=== PATIENT | female | born 1950 | race Caucasian/White ===

== ENCOUNTER → 2017-12-16 | Outpatient (REF) | payer MEDICARE, OTHER | LOC: M SFHCWAGY 11:16 | DX: Z12.4 Encounter for screening for malignant neoplasm of cervix (principal); N88.8 Other specified noninflammatory disorders of cervix uteri; Z12.12 Encounter for screening for malignant neoplasm of rectum | CPT/HCPCS: G0123 ==

== ENCOUNTER → 2022-01-29 | Outpatient (CLI) | payer MEDICARE, OTHER | LOC: M WHC 12:09 | PROVIDERS: ATTEND Nurse Practitioner Family | DX: Z12.31 Encounter for screening mammogram for malignant neoplasm of breast (principal) ==